=== PATIENT | female | born 1985 | race Two or more races ===

== ENCOUNTER 2023-10-27 14:00 | Outpatient (CLI) | payer OTHER | END 2023-10-27 14:10 | disposition home or self-care (01) | LOC: PPH VACUNA 14:00 | PROVIDERS: ATTEND Emergency Medicine Pediatric Emergency Medicine | DX: Z23 Encounter for immunization (principal) ==

== ENCOUNTER 2024-01-06 11:49 | Outpatient (CLI) | payer OTHER | END 2024-01-06 11:54 | disposition home or self-care (01) | LOC: LAB 11:49 | PROVIDERS: ATTEND Preventive Medicine Occupational Medicine | DX: B19.10 Unspecified viral hepatitis B without hepatic coma (principal) ==

== ENCOUNTER 2024-03-02 01:16 | Outpatient (CLI) | payer OTHER | END 2024-03-02 02:00 | disposition home or self-care (01) | LOC: PPH VACUNA 01:16 | PROVIDERS: ATTEND Emergency Medicine Pediatric Emergency Medicine | DX: Z23 Encounter for immunization (principal) ==

== ENCOUNTER 2025-02-23 14:30 | Outpatient (CLI) | payer OTHER | END 2025-02-23 14:40 | disposition home or self-care (01) | LOC: PPH VACUNA 14:30 | PROVIDERS: ATTEND Emergency Medicine Pediatric Emergency Medicine | DX: Z23 Encounter for immunization (principal) ==